=== PATIENT | female | born 1965 | race Caucasian/White ===

== ENCOUNTER 2017-03-26 18:02 | Emergency (ER) | payer OTHER ==
[~2017-03-26] VITALS: Ht 167.6 cm; Wt 80.5 kg
[~2017-03-26 18:02] MED LIST: ACYC800T PO; ALBU8.5H4 INHALATION; ALBUINHPP INH; BENZ-12 PO; CITA40TA PO; DES50 PO; DOXY100T2 PO; EST1 PO; PAX20 PO
[2017-03-26 18:29] VITALS: BP 170/95; PULSE 94; RESP 18; O2SAT 98
--- NOTE | 2017-03-26 19:58 | ED.REPORT ---
HPI-General Illness Date of Service Mar 26, 2017 ED Provider: Raji Green DO Pt is a 52 year old female with a history of hemorrhoids who presents to the ED complaining of worsening hemorrhoidal pain onset today. She c/o associated increased hemorrhoid size. The pt states that another hemorrhoid is also forming. The pt reports that she has had the hemorrhoid for 2.5 weeks. Nursing Notes Stated Complaint: HEMORRHOIDS Chief Complaint: General Complaint Nursing Notes Reviewed: Yes Allergies: Coded Allergies: Penicillins (Verified Allergy, Severe, GI UPSET, 07/31/12) Scheduled Acyclovir-Expunged Drug, Do Not Renew! (Acyclovir-Expunged Drug, Do Not Renew!) 800 Mg Tablet 800 MG PO TIDP Albuterol-Expunged Drug, Do Not Renew! (Albuterol-Expunged Drug, Do Not Renew!) 90 Mcg Puff 2 PUFF INH Q 4HRS PRN Citalopram-Expunged Drug, Do Not Renew! (Citalopram-Expunged Drug, Do Not Renew! ) 40 Mg Tablet 40 MG PO DAILY Doxycycline Hyclate (Doxycycline Hyclate) 100 Mg Tablet 100 MG PO BID Estradiol-Expunged Drug, Do Not Renew! (Estrace-Expunged Drug, Do Not Renew!) 1 Mg Tablet 1 MG PO DAILY Paroxetine-Expunged Drug, Do Not Renew! (Paroxetine-Expunged Drug, Do Not Renew! ) 20 Mg Tablet 20 MG PO DAILY Trazodone-Expunged Drug, Do Not Renew! (Trazodone-Expunged Drug, Do Not Renew!) 50 Mg Tab 25 MG PO HSP Scheduled PRN Albuterol HFA (Albuterol HFA) 8.5 Gm Hfa.aer.ad 2 PUFF INHALATION Q4H PRN PRN For Shortness of Breath Benzonatate (Tessalon Perle) 100 Mg Capsule 200 MG PO TID PRN PRN For Cough General Time Seen by MD: 19:58 Chief Complaint Other (hemorrhoidal pain) Hx Obtained From: Patient Arrived By: Walk-in Sudden in Onset?: No Onset Occurred: Onset unknown Symptom Duration: Since onset Quality: Painful Radiation: : Does not radiate Severity: Current: Moderate Severity: Maximum: Moderate Recent Healthcare: No recent doctor visit, No recent hospitalization Similar Sx Previous: Yes Past Medical History Past Medical History anxiety Reports: Depression Past Surgical History Xlap - h/o ovarian failure in [place] Family History Noncontributory Smoking History Current Every Day Smoker Social History Alcohol Use: "Social" Other Social History: Local resident Ambulatory Status Independent Review of Systems + Hemorrhoidal pain + Increased hemorrhoid size Full Review of Systems Constitutional: Denies: Fever Respiratory: Denies: Non-productive cough, Shortness of breath Complete sys rev & neg: except as marked. Physical Exam Vital Signs Vital Signs Date Time Temp Pulse Resp B/P Pulse Ox O2 Delivery O2 Flow Rate FiO2 03/26/17 18:29 37.0 94 18 170/95 98 Room Air Initial VS: Reviewed Head / Eyes: Atraumatic, Normocephalic Neck: Supple, Full range of motion Respiratory: Breath sounds normal, Clear to auscultation, No respiratory distress Cardiovascular: Regular rate & rhythm, Heart sounds normal, Intact distal pulses Abdomen / GI: Soft, Non-tender Extremities: Vascular intact, Neuro intact Skin: Warm, Dry, No cyanosis Neurologic: Alert, Oriented, Nonfocal Psychiatric: Mood/affect normal, Behavior normal General/Constitutional: Awake, Alert RECTUM: There are two thrombosed hemorrhoids with one at the 5o'clock position and another at the 7 o'clock position; they are off the midline. Procedures Hemorrhoidectomy: Both thrombose veins removed with incision Time: 20:30 Procedure performed by: ED physician Consent/Setup/Site Prep: Consent from patient, Time-out performed, Hand hygiene observed, Stand sterile technique Local Anesthesia: Lidocaine with epi 1% Preparation: Betadine Irrigation: Copious Post-procedure/Complications: Antibiotic ointment applied, dressing applied, no complications, Tolerated procedure well, patient stable Re-Eval/Medical Decision Med Decision/Clinical Course The hemorrhoids were both thrombosed. Thrombectomy was performed after local anesthesia. Complete relief of pain. All swelling resolved. I was careful to avoid damaging her anus. Minimal bleeding. 2 large clots removed. We will refer to surgery for definitive care. Routine opiate warnings given. Source of Hx: Old records Time of Eval: 20:30 Re-Evaluation/Progress Note: Pt rechecked. Performed hemorrhoidectomy with pt's consent. Informed pt of plan for discharge. Pt understands and agrees with plan for discharge. F/U instructions and RTER warnings given. All questions addressed. Counseled Regarding: Diagnosis, Need for follow-up, When/why to return to ED Discharge & Departure Primary Impression: Thrombosed external hemorrhoid Disposition: Home Discharge Condition All VS Reviewed: Yes Condition: Stable Patient Instructions: Hemorrhoidectomy (GEN), Hemorrhoids (ED) Additional Instructions: Soak in a warm tub to keep the clots from reaccumulating. Eastman 1-2 every 6 hours as needed. Do not drive or drink alcohol or consume acetaminophen while on [place]man. Motrin as directed for moderate pain. Call the surgical clinic tomorrow for definitive care and get the next available appointment. Return to the Emergency Department for any new or worrisome symptoms. Referrals: Raquel Dior MD (PCP) [facility] Attestation Portions of this note were transcribed by Jenny Gann. I, Dr. Green personally performed the history, physical exam and medical decision-making; I reviewed and confirmed the accuracy of the information in the transcribed note. Signed by : Kwaku Kirkpatrick, 03/26/17. copies to: [facility]; Raquel Dior MD, Todd P DO Mar 26, 2017 19:58 Jenny García Mar 26, 2017 20:28
[2017-03-26] MEDS ORDERED: Lidocaine 1%-Epi 1:100,000 50 mL Inj NERVEBLOCK ONE (20:15)
[2017-03-26] MEDS ORDERED: Lidocaine 1%-Epi 1:100,000 20 mL Inj ONE (20:18)
[2017-03-26] MEDS ORDERED: _HYDROcodone/APAP 5-325 mg Tablet PO PRN ×2 (20:40→21:05)
[2017-03-26] MEDS ORDERED: HYDROcodone-APAP 5-325 mg Tablet PO PRN ×2 (21:00)
[2017-03-26] MEDS ORDERED: HYDROcodone-APAP 5-325 mg Tablet PO SCH (21:00)
== END 2017-03-26 20:58 | disposition home or self-care (01) ==
LOC: SED 18:02
DX: K64.5 Perianal venous thrombosis (principal); F17.210 Nicotine dependence, cigarettes, uncomplicated; Z79.51 Long term (current) use of inhaled steroids; Z88.0 Allergy status to penicillin